=== PATIENT | male | born 1985 | race African-American/Black ===

== ENCOUNTER 2023-11-07 22:18 | Emergency (ER) | payer SELFPAY ==
[2023-11-07 22:25] VITALS: BP 148/105
[2023-11-07 22:30] VITALS: BP 151/102
[2023-11-07] MEDS ORDERED: FAMOTIDINE 10MG/ML 2ML SDV IV STA (22:33)
[2023-11-07] MEDS ORDERED: DiphenhydrAMINE HCL 50 MG/ML SDV IV STA (22:33)
[2023-11-07 22:46] VITALS: BP 134/86
[2023-11-07 23:55] VITALS: BP 134/86
== END 2023-11-07 23:55 | disposition home or self-care (01) | DRG 156 ==
LOC: ED 22:18
DX: R07.0 Pain in throat (principal); Z20.822 Contact with and (suspected) exposure to COVID-19